=== PATIENT | female | born 1990 | race Asian ===

== ENCOUNTER 2016-11-10 19:15 | Emergency (ER) | payer OTHER ==
[~2016-11-10] VITALS: Ht 172.7 cm; Wt 97.1 kg
[2016-11-10 20:08] VITALS: BP 129/57; TEMP 97.9
== END 2016-11-10 20:09 | disposition home or self-care (01) ==
LOC: ED 19:15
DX: T63.391A Toxic effect of venom of other spider, accidental (unintentional), initial encounter (principal); X58.XXXA Exposure to other specified factors, initial encounter; Y92.098 Other place in other non-institutional residence as the place of occurrence of the external cause
CPT/HCPCS: 96372; 99283; J1100